=== PATIENT | male | born 1990 | race Caucasian/White ===

== ENCOUNTER 2023-04-09 18:08 | Day surgery (SDC) | payer SELFPAY ==
[2023-04-09] MEDS ORDERED: Lactated Ringers 1,000 ML IV SCH ×2 (18:15→20:30)
[2023-04-09] MEDS ORDERED: Acetaminophen 650 MG Supp RECTAL ONE (18:16)
[2023-04-09] MEDS ORDERED: Morphine 4 MG/ML Syringe IVPUSH ONE (18:17)
[2023-04-09] MEDS ORDERED: Ondansetron 4 MG/2 ML SDV ONE (18:48)
[2023-04-09] MEDS ORDERED: Ketorolac 30 MG/ML SDV ONE (18:48)
[2023-04-09] MEDS ORDERED: Lidocaine 2% 5 ML SDV ONE (18:48)
[2023-04-09] MEDS ORDERED: Dexamethasone 4 MG/ML 5 ML MDV ONE (18:48)
[2023-04-09] MEDS ORDERED: fentaNYL 100 MCG/2 ML SDV ONE (18:48)
[2023-04-09] MEDS ORDERED: Rocuronium Bromide 50 MG/5 ML Syringe ONE (18:48)
[2023-04-09] MEDS ORDERED: Propofol 200 MG/20 ML SDV ONE (18:48)
[2023-04-09] MEDS ORDERED: Sugammadex Sodium 200 MG/2 ML VIAL ONE (18:48)
[2023-04-09] MEDS ORDERED: Bupivacaine 0.5% 30 ML SDV ONE (18:51)
[2023-04-09] MEDS ORDERED: Ropivacaine 0.5% 5 MG/ML 30 ML SDV ONE (18:52)
[2023-04-09] MEDS ORDERED: EPINEPHrine 1 MG/1 ML Amp ONE (18:52)
[2023-04-09] MEDS ORDERED: Bupivacaine 0.25% 30 ML SDV ONE (19:23)
[2023-04-09] MEDS ORDERED: droPERidol 5 MG/2 ML SDV IVPUSH PRN (19:26)
[2023-04-09] MEDS ORDERED: Morphine 2 MG/ML SYRINGE IVPUSH PRN (19:26)
[2023-04-09] MEDS ORDERED: Albuterol 0.083% 2.5 MG/3 ML Neb Soln NEB PRN (19:26)
[2023-04-09] MEDS ORDERED: fentaNYL 50 MCG/ML SDV IVPUSH PRN (19:26)
[2023-04-09] MEDS ORDERED: Naloxone 0.4 MG/ML SDV IVPUSH PRN ×2 (19:26→20:24)
[2023-04-09] MEDS ORDERED: Metoclopramide 10 MG/2 ML SDV IVPUSH PRN (19:26)
[2023-04-09] MEDS ORDERED: HYDROmorphone 1 MG/ML Syringe IVPUSH PRN (19:26)
[2023-04-09] MEDS ORDERED: Ondansetron 4 MG/2 ML SDV IVPUSH PRN ×2 (19:26→20:24)
[2023-04-09] MEDS ORDERED: Morphine 10 MG/ML SDV ONE (20:11)
[2023-04-09] MEDS ORDERED: HYDROmorphone 2 MG/ML Syringe ONE (20:20)
[2023-04-09] MEDS ORDERED: HYDROmorphone 2 MG/ML Syringe IVPUSH PRN (20:24)
[2023-04-09] MEDS ORDERED: Acetaminophen 1,000 MG in Premix Bag 1 BAG IV PRN (20:24)
[2023-04-09] MEDS ORDERED: Acetaminophen/HYDROcodone 325-5 MG Tab PO PRN (20:24)
[2023-04-09] MEDS: cefOXitin 2 GM in Sodium Chloride 0.9% 50 ML IV SCH (22:11)
[2023-04-09] MEDS ORDERED: Calcium Carbonate 500 MG Tab.Chew PO PRN (23:08)
[2023-04-10] MEDS: cefOXitin 2 GM in Sodium Chloride 0.9% 50 ML IV SCH ×2 (03:38→10:13)
[2023-04-10] MEDS ORDERED: Pantoprazole 40 MG Tab.CR PO SCH (09:00)
== END 2023-04-10 11:45 | disposition home or self-care (01) ==
LOC: MW.ED 18:08 → MW.SDS 19:12 → MW.MS 21:50 → MW.SDS 04-10 11:45
PROVIDERS: ATTEND Surgery
DX: K35.30 Acute appendicitis with localized peritonitis, without perforation or gangrene (principal); F17.220 Nicotine dependence, chewing tobacco, uncomplicated
CPT/HCPCS: 44970; A9270; J0171; J0694; J1100; J1885; J2270; J2704; J2795; J3010; J3490; J7030; J7120; 00840; 64488; J1170; J2405